=== PATIENT | male | born 1965 | race Hispanic/Latino ===

== ENCOUNTER 2017-09-25 19:52 | Emergency (ER) | payer OTHER ==
[~2017-09-25] VITALS: Ht 177.8 cm; Wt 95.3 kg
--- OUTSIDE RECORDS SUMMARY | 2017-09-25 19:55 | XMS REPORT ---
[facility] Address Unknown Phone Unavailable Care Team Providers [facility] [employer] Name Role Phone PARRIS MARR Unavailable Unavailable Problems This patient has no known problems. Allergies, Adverse Reactions, Alerts This patient has no known allergies or adverse reactions. Medications This patient has no known medications. Results Test Description Test Time Test Comments Text Results Atomic Results Result Comments POCT-GLUCOSE METER 2017-05-06 17:02:00 POC-GLUCOSE METER (BEAKER) (test rinq=4406) 116 mg/dL 70-110 TESTED AT [address] [address] HEMOGLOBIN [id number] 12:59:00* Test Item Value Reference Range Comments HEMOGLOBIN A1C (BEAKER) (test rgax=516) 7.4 % 4.3-6.1 POCT-GLUCOSE [id number] 07:59:00* Test Item Value Reference Range Comments POC-GLUCOSE METER (BEAKER) (test frcp=9017) 115 mg/dL 70-110 TESTED AT [place] [address] [id number] 07:36:00* Test Item Value Reference Range Comments PHOSPHORUS (BEAKER) (test ayqn=868) 3.5 mg/dL 2.3-4.7 [id number] 07:36:00* Test Item Value Reference Range Comments MAGNESIUM (BEAKER) (test zlkc=091) 1.9 mg/dL 1.6-2.6 BASIC METABOLIC [id number] 07:36:00* Test Item Value Reference Range Comments SODIUM (BEAKER) (test nmak=970) 138 meq/L 136-145 POTASSIUM (BEAKER) (test cyto=122) 3.7 meq/L 3.5-5.1 CHLORIDE (BEAKER) (test cmwf=434) 106 meq/L 98-107 CO2 (BEAKER) (test mjva=185) 23 meq/L 22-29 BLOOD UREA NITROGEN (BEAKER) (test remc=224) 17 mg/dL 7-21 CREATININE (BEAKER) (test czzw=129) 0.93 mg/dL 0.57-1.25 GLUCOSE RANDOM (BEAKER) (test brii=314) 92 mg/dL 70-105 CALCIUM (BEAKER) (test umdp=340) 8.6 mg/dL 8.4-10.2 EGFR (BEAKER) (test utjw=0847) 86 mL/min/1.73 sq m ESTIMATED GFR IS NOT ACCURATE CREATININE CLEARANCE IN PREDICTING GLOMERULAR FILTRATION RATE. ESTIMATED GFR IS NOT APPLICABLE FOR DIALYSIS PATIENTS. LIPID [id number] 07:36:00* Test Item Value Reference Range Comments TRIGLYCERIDES (BEAKER) (test pzlo=585) 125 mg/dL CHOLESTEROL (BEAKER) (test bicd=680) 127 mg/dL HDL CHOLESTEROL (BEAKER) (test hcmi=318) 30 mg/dL LDL CHOLESTEROL CALCULATED (BEAKER) (test rgch=799) 72 mg/dL Triglyceride Reference Range: Low Risk <150 Borderline 150-199 High Risk 200-499 Very High Risk >=500Cholesterol Reference Range: Low Risk <200 Borderline 200-239 High Risk >240HDL Cholesterol Reference Range: Low Risk >=60 High Risk <40LDL Cholesterol Reference Range: Optimal <100 Near Optimal 100-129 Borderline 130-159 High 160-189 Very High >=190 TROPONIN [id number] 07:14:00* Test Item Value Reference Range Comments TROPONIN I (BEAKER) (test gfym=665) 0.01 ng/mL 0.00-0.03 Troponin I (TnI) levels must be interpreted in the context of the presenting symptoms and the clinical findings. Elevated TnI levels indicate myocardial damage, but are not specific for ischemic heart disease. Elevated TnI levels are seen in patients with other cardiac conditions (including myocarditis and congestive heart failure), and slight TnI elevations occur in patients with other conditions, including sepsis, renal failure, acidosis, acute neurological disease, and persistent tachyarrhythmia.CBC W/PLT COUNT & AUTO [id number] 06:44:00* Test Item Value Reference Range Comments WHITE BLOOD CELL COUNT (BEAKER) (test htip=507) 5.2 K/ L 3.5-10.5 RED BLOOD CELL COUNT (BEAKER) (test rbsk=610) 4.78 M/ L 4.63-6.08 HEMOGLOBIN (BEAKER) (test dqzh=431) 13.4 GM/DL 13.7-17.5 HEMATOCRIT (BEAKER) (test fbhc=273) 41.3 % 40.1-51.0 MEAN CORPUSCULAR VOLUME (BEAKER) (test oxaf=744) 86.4 fL 79.0-92.2 MEAN CORPUSCULAR HEMOGLOBIN (BEAKER) (test biai=588) 28.0 pg 25.7-32.2 MEAN CORPUSCULAR HEMOGLOBIN CONC (BEAKER) (test orjp=871) 32.4 GM/DL 32.3- 36.5 RED CELL DISTRIBUTION WIDTH (BEAKER) (test ykfp=766) 12.7 % 11.6-14.4 PLATELET COUNT (BEAKER) (test igrp=948) 216 K/CU MM 150-450 MEAN PLATELET VOLUME (BEAKER) (test uoeo=354) 10.9 fL 9.4-12.4 NUCLEATED RED BLOOD CELLS (BEAKER) (test drru=851) 0 /100 WBC 0-0 NEUTROPHILS RELATIVE PERCENT (BEAKER) (test qney=263) 59 % LYMPHOCYTES RELATIVE PERCENT (BEAKER) (test aalo=213) 27 % MONOCYTES RELATIVE PERCENT (BEAKER) (test kjyu=648) 11 % EOSINOPHILS RELATIVE PERCENT (BEAKER) (test aiab=042) 3 % BASOPHILS RELATIVE PERCENT (BEAKER) (test trsc=472) 0 % NEUTROPHILS ABSOLUTE COUNT (BEAKER) (test mksr=413) 3.03 K/ L 1.78-5.38 LYMPHOCYTES ABSOLUTE COUNT (BEAKER) (test aoty=101) 1.41 K/ L 1.32-3.57 MONOCYTES ABSOLUTE COUNT (BEAKER) (test orvx=853) 0.56 K/ L 0.30-0.82 EOSINOPHILS ABSOLUTE COUNT (BEAKER) (test xtnv=340) 0.15 K/ L 0.04-0.54 BASOPHILS ABSOLUTE COUNT (BEAKER) (test xqdn=355) 0.02 K/ L 0.01-0.08 IMMATURE GRANULOCYTES-RELATIVE PERCENT (BEAKER) (test ymkk=9521) 0 % 0-1 CREATINE KINASE (CK), TOTAL AND [id number] 00:57:00* Test Item Value Reference Range Comments CREATINE KINASE TOTAL (BEAKER) (test mawn=103) 84 U/L 29-200 CREATINE KINASE-MB (BEAKER) (test hgen=025) 0.7 ng/mL 0.0-6.6 CREATINE KINASE-MB INDEX (BEAKER) (test yzij=440) 0.8 % CK-MB Reference Range:<6.7 Normal6.7-10.0 Borderline>10.0 AbnormalTROPONIN [id number] 00:57:00* Test Item Value Reference Range Comments TROPONIN I (BEAKER) (test qzdx=012) < ng/mL 0.00-0.03 Troponin I (TnI) levels must be interpreted in the context of the presenting symptoms and the clinical findings. Elevated TnI levels indicate myocardial damage, but are not specific for ischemic heart disease. Elevated TnI levels are seen in patients with other cardiac conditions (including myocarditis and congestive heart failure), and slight TnI elevations occur in patients with other conditions, including sepsis, renal failure, acidosis, acute neurological disease, and persistent tachyarrhythmia.HEPATIC FUNCTION [id number] 00:49: 00* Test Item Value Reference Range Comments TOTAL PROTEIN (BEAKER) (test pqvf=525) 6.4 gm/dL 6.0-8.3 ALBUMIN (BEAKER) (test kyui=2372) 3.8 g/dL 3.5-5.0 BILIRUBIN TOTAL (BEAKER) (test xluj=963) 0.6 mg/dL 0.2-1.2 BILIRUBIN DIRECT (BEAKER) (test vcte=813) 0.2 mg/dL 0.1-0.5 ALKALINE PHOSPHATASE (BEAKER) (test gyeh=104) 63 U/L 40-150 AST (SGOT) (BEAKER) (test mfos=814) 16 U/L 5-34 ALT (SGPT) (BEAKER) (test auqr=621) 19 U/L 6-55 POCT-GLUCOSE [id number] 23:55:00* Test Item Value Reference Range Comments POC-GLUCOSE METER (BEAKER) (test hrfj=4937) 98 mg/dL 70-[address] [facility] [address] [place] [address] MR, SPINE, CERVICAL, WITHOUT [id number] 21:34:00Mri of cervical spine -- re: hemiplegia --possible cva vs cervical lesionFINAL REPORT MR Cervical spine without contrast. CLINICAL HISTORY: Ataxia, stroke suspected as etiology Episode of Care: Initial TECHNIQUE: MRI of the cervical spine utilizing sagittal T1, T2, STIR, axial T1, T2 weighted images. COMPARISON : None FINDINGS: There is straightening of the cervical curvature with maintained alignment. The vertebral body heights and marrow signal are maintained. The visualized posterior fossa is intact. The cervical cord is normal in contour and caliber without signal change. At C2-C3, there is no central canal or neural foraminal stenosis. At C3-C4, there is a small central disc protrusion contacting the cord without significant central canal stenosis. There is no significant foraminal stenosis. At C4-C5, there is no central canal or neural foraminal stenosis. At C5-C6, there is a mild disc osteophyte complex without significant central canal stenosis. Uncovertebral and facet arthrosis results in mild bilateral foraminal stenosis. At C6-C7, there is no central canal or neural foraminal stenosis. At C7-T1, there is no central canal or neural foraminal stenosis. IMPRESSION: At C3-C4, there is a small central disc protrusion contacting the cord without significant central canal stenosis. No abnormal cervical cord signal. Signed: Lawrence Velasco MDReport Verified Date/Time : 05/05/2017 21:34:47 Reading Location: [facility] Radiology Reading Room , MRA, NECK, WITHOUT IV [id number] 21:29:00mra of brain (tetlin of be ) and carotids (mra of neck) ---re:cva/tiaFINAL REPORT MRA Head CLINICAL HISTORY: Hemiplegia Episode of Care: Initial TECHNIQUE: MRA of the head utilizing 3-D iyrw-oj-rgtcfa technique, with 3-D reconstructions. COMPARISON: None FINDINGS: There is no evidence of intracranial aneurysm, focal stenosis, or major branch vessel occlusion. 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 IMPRESSION: No evidence for a major tetlin of Be proximal branch vessel occlusion. MRA Neck CLINICAL HISTORY: Hemiplegia Episode of Care: Initial TECHNIQUE: MRA of the neck utilizing 2-D and 3-D ihfq-vv-wzxzxz technique, with 3-D reconstructions. COMPARISON: None FINDINGS: The carotid arteries in the neck are patent including their bifurcations. There is antegrade flow in the vertebral arteries in the neck. IMPRESSION: No evidence of hemodynamically significant stenosis in the cervical carotid or vertebral arteries by NASCET criteria. Signed: Lawrence Velasco Verified Date/Time: 05/05/2017 21:29:44 Reading Location: [facility] Reading Room , MRA, BRAIN, WITHOUT [id number] 21:29:00mra of brain (tetlin of be ) and carotids (neck) 2/2 cva/tiaFINAL REPORT MRA Head CLINICAL HISTORY: Hemiplegia Episode of Care: Initial TECHNIQUE: MRA of the head utilizing 3-D cckg-ct-mywuwp technique, with 3-D reconstructions. COMPARISON: None FINDINGS: There is no evidence of intracranial aneurysm, focal stenosis, or major branch vessel occlusion. 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 IMPRESSION: No evidence for a major tetlin of Be proximal branch vessel occlusion. MRA Neck CLINICAL HISTORY: Hemiplegia Episode of Care: Initial TECHNIQUE: MRA of the neck utilizing 2-D and 3-D nziq-bq-fsewvl technique, with 3-D reconstructions. COMPARISON: None FINDINGS: The carotid arteries in the neck are patent including their bifurcations. There is antegrade flow in the vertebral arteries in the neck. IMPRESSION: No evidence of hemodynamically significant stenosis in the cervical carotid or vertebral arteries by NASCET criteria. Signed: Lawrence Velasco Verified Date/Time: 05/05/2017 21:29: 44 Reading Location: [facility] Radiology Reading Room , BRAIN, WITHOUT [id number] 19:53:00FINAL REPORT MRI Brain without contrast Clinical History: right side numbness Episode of Care: Initial Technique: MRI of the brain utilizing axial T2, FLAIR, GRE, DWI; sagittal and coronal T1-weighted images. Comparisons: None Findings: There is no evidence of acute infarct or hemorrhage. There is multifocal subcortical and periventricular white matter FLAIR signal abnormality in a nonspecific distribution. There is no hydrocephalus, midline shift, or apparent mass effect. There are no extra-axial fluid collections. The craniocervical junction is preserved. The major intracranial flow-voids appear patent. IMPRESSION: No evidence of acute infarct, hemorrhage, or hydrocephalus. Signed: Lawrence Velasco Verified Date/Time: 05/05/2017 19:53:05 Reading Location: [facility] Radiology Reading Room , CHEST, 1 VIEW, NON [id number] 17:05:00Reason for exam:->NUMBNESSReason for exam:->NEUROLOGIC PROBLEMFINAL REPORT TECHNIQUE: Frontal chest radiograph dated 05/05/2017. CLINICAL HISTORY: Numbness COMPARISON STUDY: Chest radiograph dated 05/05/2017 IMPRESSION :Lungs are clear. No pleural effusion or pneumothorax. Cardiomediastinal silhouette is normal in size. No pulmonary edema. No fracture. Signed: Therese Edmondson Verified Date/Time: 05/05/2017 17:05:11 Reading Location: [facility] Radiology Reading Room , BRAIN, WITHOUT [id number] 15:12: 00Reason for exam:->NUMBNESSReason for exam:->NEUROLOGIC PROBLEMWhat is the patient's sedation requirement?->No SedationFINAL REPORT CT head without contrast. Reason for exam: Sensation lossNUMBNESSNEUROLOGIC PROBLEM Comparisons: No priors Discussion: Multiple axial CT images of the head are provided without contrast evaluated in brain and bone windows. This exam was performed according to our departmental dose optimization program which includes automated exposure control, adjustment of the mA and/or kV according to patient's size and/or use of iterative reconstructive technique. The santiago- white differentiation is maintained. There is no CT evidence of intracranial hemorrhage, mass-effect, hydrocephalus, shift, or extra-axial collections. The visualized orbital contents, bones and surrounding soft tissues are unremarkable. The visualized paranasal sinuses and mastoid air cells are unremarkable. Impressions: No CT evidence of acute intracranial process. If there is persistent clinical concern, MR can provide further evaluation. Signed : Kim, Alexus MDReport Verified Date/Time: 05/05/2017 15:12:04 Reading Location: [facility] C013W Consult Reading Room B-TYPE NATRIURETIC FACTOR (BNP)2017-05-05 15:09:00* Test Item Value Reference Range Comments B-TYPE NATRIURETIC PEPTIDE (BEAKER) (test kmmr=733) 19 pg/mL 0-100 CREATINE KINASE (CK), TOTAL AND [id number] 14:50:00* Test Item Value Reference Range Comments CREATINE KINASE TOTAL (BEAKER) (test rmwn=775) 120 U/L 29-200 CREATINE KINASE-MB (BEAKER) (test xesk=222) 1.0 ng/mL 0.0-6.6 CREATINE KINASE-MB INDEX (BEAKER) (test tvsf=258) 0.8 % CK-MB Reference Range:<6.7 Normal6.7-10.0 Borderline>10.0 AbnormalTROPONIN [id number] 14:50:00* Test Item Value Reference Range Comments TROPONIN I (BEAKER) (test nqey=981) < ng/mL 0.00-0.03 Troponin I (TnI) levels must be interpreted in the context of the presenting symptoms and the clinical findings. Elevated TnI levels indicate myocardial damage, but are not specific for ischemic heart disease. Elevated TnI levels are seen in patients with other cardiac conditions (including myocarditis and congestive heart failure), and slight TnI elevations occur in patients with other conditions, including sepsis, renal failure, acidosis, acute neurological disease, and persistent tachyarrhythmia.[id number] 14:42:00* Test Item Value Reference Range Comments MAGNESIUM (BEAKER) (test myho=366) 2.0 mg/dL 1.6-2.6 BASIC METABOLIC [id number] 14:42:00* Test Item Value Reference Range Comments SODIUM (BEAKER) (test gawb=594) 138 meq/L 136-145 POTASSIUM (BEAKER) (test igvf=402) 4.2 meq/L 3.5-5.1 CHLORIDE (BEAKER) (test nyoa=610) 106 meq/L 98-107 CO2 (BEAKER) (test mioj=842) 22 meq/L 22-29 BLOOD UREA NITROGEN (BEAKER) (test mrho=588) 19 mg/dL 7-21 CREATININE (BEAKER) (test hhlw=258) 1.23 mg/dL 0.57-1.25 GLUCOSE RANDOM (BEAKER) (test uadu=013) 152 mg/dL 70-105 CALCIUM (BEAKER) (test kujy=693) 9.2 mg/dL 8.4-10.2 EGFR (BEAKER) (test grfo=8434) 62 mL/min/1.73 sq m ESTIMATED GFR IS NOT ACCURATE CREATININE CLEARANCE IN PREDICTING GLOMERULAR FILTRATION RATE. ESTIMATED GFR IS NOT APPLICABLE FOR DIALYSIS PATIENTS. PT/[id number] 14:26:00* Test Item Value Reference Range Comments PROTIME (BEAKER) (test pscr=017) 14.5 seconds 11.7-14.7 INR (BEAKER) (test fdvi=009) 1.1 <=5.9 PARTIAL THROMBOPLASTIN TIME (BEAKER) (test kyag=301) 28.8 seconds 22.5-36.0 RECOMMENDED COUMADIN/WARFARIN INR THERAPY RANGESSTANDARD DOSE: 2.0 - 3.0 Includes: PROPHYLAXIS for venous thrombosis, systemic embolization; TREATMENT for venous thrombosis and/or pulmonary embolus.HIGH RISK: Target INR is 2.5-3.5 for patients with mechanical heart valves.CBC W/PLT COUNT & AUTO [id number] 14:19:00* Test Item Value Reference Range Comments WHITE BLOOD CELL COUNT (BEAKER) (test slqr=548) 5.3 K/ L 3.5-10.5 RED BLOOD CELL COUNT (BEAKER) (test zxgf=711) 4.94 M/ L 4.63-6.08 HEMOGLOBIN (BEAKER) (test julv=881) 14.0 GM/DL 13.7-17.5 HEMATOCRIT (BEAKER) (test pghk=312) 43.0 % 40.1-51.0 MEAN CORPUSCULAR VOLUME (BEAKER) (test svbe=106) 87.0 fL 79.0-92.2 MEAN CORPUSCULAR HEMOGLOBIN (BEAKER) (test nfcy=701) 28.3 pg 25.7-32.2 MEAN CORPUSCULAR HEMOGLOBIN CONC (BEAKER) (test tsun=192) 32.6 GM/DL 32.3- 36.5 RED CELL DISTRIBUTION WIDTH (BEAKER) (test nojg=962) 12.9 % 11.6-14.4 PLATELET COUNT (BEAKER) (test grts=794) 208 K/CU MM 150-450 MEAN PLATELET VOLUME (BEAKER) (test azol=935) 10.9 fL 9.4-12.4 NUCLEATED RED BLOOD CELLS (BEAKER) (test fmbo=235) 0 /100 WBC 0-0 NEUTROPHILS RELATIVE PERCENT (BEAKER) (test oahb=448) 65 % LYMPHOCYTES RELATIVE PERCENT (BEAKER) (test ruyh=485) 21 % MONOCYTES RELATIVE PERCENT (BEAKER) (test wekh=028) 11 % EOSINOPHILS RELATIVE PERCENT (BEAKER) (test holz=220) 2 % BASOPHILS RELATIVE PERCENT (BEAKER) (test giat=892) 0 % NEUTROPHILS ABSOLUTE COUNT (BEAKER) (test abxe=866) 3.45 K/ L 1.78-5.38 LYMPHOCYTES ABSOLUTE COUNT (BEAKER) (test nskz=074) 1.11 K/ L 1.32-3.57 MONOCYTES ABSOLUTE COUNT (BEAKER) (test vwky=303) 0.60 K/ L 0.30-0.82 EOSINOPHILS ABSOLUTE COUNT (BEAKER) (test mewq=789) 0.08 K/ L 0.04-0.54 BASOPHILS ABSOLUTE COUNT (BEAKER) (test vpmx=333) 0.02 K/ L 0.01-0.08 IMMATURE GRANULOCYTES-RELATIVE PERCENT (BEAKER) (test oawe=4957) 1 % 0-1
[2017-09-25] MEDS ORDERED: METFORMIN HCL500 MG PO (21:48)
[2017-09-25] MEDS ORDERED: ASPIR 8181 MG (21:48)
[2017-09-25] MEDS ORDERED: ATORVASTATIN CA20 MG PO (21:48)
== END 2017-09-25 22:07 | disposition left against medical advice (07) ==
LOC: FSED 19:52
DX: Z04.1 Encounter for examination and observation following transport accident (principal); V89.2XXA Person injured in unspecified motor-vehicle accident, traffic, initial encounter
CPT/HCPCS: 99282

== ENCOUNTER 2020-08-04 08:05 | Emergency (ER) | payer OTHER ==
[~2020-08-04] VITALS: Ht 177.8 cm; Wt 95.3 kg
[~2020-08-04 08:05] MED LIST: ASPIR 8181 MG; ATORVASTATIN CA20 MG PO; METFORMIN HCL500 MG PO
[2020-08-04] MEDS ORDERED: ASPIRIN 81 MG CHEW TAB PO STA (08:14)
[2020-08-04] MEDS ORDERED: KETOROLAC TROMETHAMINE 30 MG/ML VIAL IV STA (08:14)
[2020-08-04] MEDS ORDERED: JANUMET 50-1,01 EACH (08:28)
[2020-08-04] MEDS ORDERED: GLIMEPIRIDE2 MG PO (08:29)
[2020-08-04] MEDS ORDERED: LOSARTAN POTASS25 MG PO (08:29)
[2020-08-04 08:59] LABS: BASOPHILS % 0.4 % (0.0-1.0); EOSINOPHILS # (AUTO) 0.1 (0.0-0.4); EOSINOPHILS % 1.9 % (0.0-6.0); HEMATOCRIT 45.7 % (38.2-49.6); HEMOGLOBIN 14.9 g/dL (14.0-18.0); LYMPHOCYTES # (AUTO) 1.5 (1.0-3.2); LYMPHOCYTES % 22.1 % (18.0-39.1); MEAN CORPUSCULAR HEMOGLOBIN 28.2 pg (28-32); MEAN CORPUSCULAR HGB CONC 32.6 g/dL (31-35); MEAN CORPUSCULAR VOLUME 86.4 fL (81-99); MONOCYTES # (AUTO) 0.6 (0.2-0.8); MONOCYTES % 8.4 % (4.4-11.3); NEUTROPHILS # (AUTO) 4.6 (2.1-6.9); NEUTROPHILS % 66.8 % (38.7-80.0); PLATELET COUNT 218 x10e3/uL (140-360); RED BLOOD COUNT 5.29 x10e6/uL (4.3-5.7); RED CELL DISTRIBUTION WIDTH 12.6 % (11.7-14.4)
[2020-08-04 09:18] LABS: ALBUMIN 4.2 g/dL (3.5-5.0); ALBUMIN/GLOBULIN RATIO 1.4 (0.8-2.0); ANION GAP 15.1 mmol/L (8-16); CALCIUM 8.7 mg/dL (8.4-10.2); CREATININE, SERUM 1.29 mg/dL (0.72-1.25); MAGNESIUM 1.8 MG/DL (1.3-2.1); POTASSIUM 4.1 mmol/L (3.5-5.1)
[2020-08-04 09:27] LABS: CREATINE KINASE MB 0.8 ng/mL (0-5.0)
[2020-08-04 09:33] LABS: INR 0.89; PARTIAL THROMBOPLASTIN TIME 29.4 seconds (23.8-35.5); PROTHROMBIN TIME 12.5 seconds (11.9-14.5)
== END 2020-08-04 10:26 | disposition home or self-care (01) ==
LOC: ER 08:33
DX: B02.9 Zoster without complications (principal); R07.9 Chest pain, unspecified; E11.9 Type 2 diabetes mellitus without complications; I10 Essential (primary) hypertension; E78.00 Pure hypercholesterolemia, unspecified; E78.5 Hyperlipidemia, unspecified; Z79.84 Long term (current) use of oral hypoglycemic drugs; Z79.82 Long term (current) use of aspirin
CPT/HCPCS: 36415; 71045; 80053; 82550; 82553; 83735; 83880; 84484; 85025; 85379; 85610; 85730; 93005; 99284; J1885

== ENCOUNTER 2024-04-05 10:38 | Emergency (ER) | payer OTHER ==
[~2024-04-05] VITALS: Ht 177.8 cm; Wt 95.5 kg
[~2024-04-05 10:38] MED LIST changes: +GLIMEPIRIDE2 MG PO; +JANUMET 50-1,01 EACH; +LOSARTAN POTASS25 MG PO
[2024-04-05] MEDS ORDERED: DOXYCYCLINE HY100 MG PO (10:56)
[2024-04-05] MEDS ORDERED: IBUPROFEN200 MG PO (10:56)
[2024-04-05] MEDS: BACITRACIN ZINC 0.9GM TP ONE (11:04)
[2024-04-05] MEDS: LIDOCAINE HCL 2% LOCAL 20 ML VIAL INJ STA (11:05)
[2024-04-05 11:59] VITALS: PULSE 63; RESP 18; TEMP 98.6; O2SAT 98
== END 2024-04-05 11:59 | disposition home or self-care (01) ==
LOC: FSED 10:42
DX: S01.81XA Laceration without foreign body of other part of head, initial encounter (principal); W26.8XXA Contact with other sharp object(s), not elsewhere classified, initial encounter; Y92.89 Other specified places as the place of occurrence of the external cause; I10 Essential (primary) hypertension; E11.9 Type 2 diabetes mellitus without complications; E78.5 Hyperlipidemia, unspecified
CPT/HCPCS: 12013; 96372; 99283; J2001